=== PATIENT | male | born 1945 | race Caucasian/White ===

== ENCOUNTER 2018-06-08 21:41 | Emergency (ER) | payer OTHER ==
[2018-06-08 22:04] VITALS: BP 144/76; PULSE 74; TEMP 98.2; BMI 33.9
--- NOTE | 2018-06-08 22:05 | PDOC ---
Rapid Medical Evaluation Chief Complaint: Pain, Acute Time Seen by Provider: 06/08/18 21:59 Medical Evaluation: Allergies Allergy/AdvReac Type Severity Reaction Status Date / Time No Known Allergies Allergy Verified 12/27/15 23:37 06/08/18 22:00 72 year old male with RLQ pain 30 mins prior to arrival, intermittent in nature. denies flank pain, urinary symptoms, no nausea. pmhx; hypertension PE: patient alert ox3. abdomen soft nontender at this time. no CVAT. A: abdominal pain P: ua, labs, spiral CT patient to the ER for further management of care. 06/08/18 22:04 Discharge Disposition - Diagnosis Abdominal pain Qualifiers: Abdominal location: unspecified location Qualified Code(s): R10.9 - Unspecified abdominal pain - Referrals - Patient Instructions - Post Discharge Activity
[2018-06-08 23:48] LABS: URINE APPEARANCE CLEAR; URINE BILIRUBIN NEGATIVE (<2.0 mg/dL); URINE COLOR YELLOW; URINE GLUCOSE (UA) NEGATIVE (NEGATIVE); URINE KETONE NEGATIVE (NEGATIVE); URINE LEUK ESTERASE NEGATIVE (NEGATIVE); URINE NITRITE NEGATIVE (NEGATIVE); URINE PROTEIN 1+ (NEGATIVE); URINE UROBILINOGEN 4.0 E.U/dl mg/dL (0.2-1.0)
[2018-06-08 23:51] LABS: HEMATOCRIT 44.2 % (35.4-49); HEMOGLOBIN 15.2 GM/dL (11.7-16.9); LYMPH % 23.9 % (8-40); MCH 31.2 pg (25.7-33.7); MCHC 34.4 g/dl (32.0-35.9); MEAN CELL VOLUME 90.6 fl (80-96); MEAN PLT VOLUME 6.8 fl (7.5-11.1); MONO % 8.3 % (3.8-10.2); NEUT % 0.4 % (42.8-82.8); PLATELET COUNT 246 K/MM3 (134-434); RBC 4.88 M/mm3 (4.00-5.60); RDW 13.3 % (11.9-15.9); WHITE BLOOD COUNT 9.7 K/mm3 (4.0-10.0)
[2018-06-08 23:59] LABS: URINE MUCUS RARE
[2018-06-09 00:16] LABS: ALBUMIN 3.9 g/dl (3.4-5.0); ALK PHOS 87 U/L (45-117); ANION GAP 9 (8-16); BILIRUBIN,TOTAL 0.4 mg/dL (0.2-1.0); BLOOD UREA NITROGEN 24 mg/dL (7-18); CALCIUM 9.1 mg/dL (8.5-10.1); CHLORIDE 103 mmol/L (98-107); CO2 26 mmol/L (21-32); CREATININE 1.8 mg/dL (0.7-1.3); GLUCOSE,RANDOM 104 mg/dL (74-106); POTASSIUM 3.7 mmol/L (3.5-5.1); SGOT/AST 24 U/L (15-37); SGPT/ALT 26 U/L (12-78); SODIUM 138 mmol/L (136-145); TOT PROT 8.1 g/dl (6.4-8.2)
--- NOTE | 2018-06-09 00:16 | PDOC ---
History of Present Illness - General Chief Complaint: Pain Stated Complaint: PAIN, ACUTE Time Seen by Provider: 06/08/18 21:59 - History of Present Illness Initial Comments: 06/09/18 00:51 72-year-old male complaining of right lower quadrant pain set in onset 30 minutes prior to arrival. Patient reports that he took one dose of Lasix to increase urinary output. Patient has a history of kidney stone. Patient reports that pain is intermittent in nature denies urinary retention, hematuria, flank pain at this time. Denies fevers/chills. Patient has a past medical history of kidney stone, hypertension. Past History - Past Medical History Allergies/Adverse Reactions: Allergies Allergy/AdvReac Type Severity Reaction Status Date / Time No Known Allergies Allergy Verified 06/08/18 23:52 Home Medications: Ambulatory Orders Lisinopril 5 mg PO DAILY 12/26/15 Guar Gum [Benefiber] 1 each PO BID #0 packet 12/27/15 Tamsulosin HCl [Flomax] 0.4 mg PO DAILY #10 cap.er.24h 06/09/18 COPD: No GI Disorders: Yes (COLON POLYP, HEMORRHOIDSH) HTN: Yes Kidney Stones: Yes - Immunization History Immunization Up to Date: No - Suicide/Smoking/Psychosocial Hx Smoking Status: No Smoking History: Never smoked Have you smoked in the past 12 months: Yes Number of Cigarettes Smoked Daily: 10 Information on smoking cessation initiated: No 'Breaking Loose' booklet given: 12/27/15 Hx Alcohol Use: No Drug/Substance Use Hx: No Substance Use Type: None Review of Systems - Review of Systems Able to Perform ROS?: Yes Is the patient limited [place] proficient: No Constitutional: No: Symptoms Reported, See HPI, Chills, Diaphoresis, Fever, Loss of Appetite, Malaise, Night Sweats, Weakness, Weight Stable, Unintentional Wgt. Loss, Unexplained wgt Loss, Other ABD/GI: Yes: Abdominal cramping. No: Symptoms Reported, See HPI, Abdominal Distended, Abd. Pain w/ defecation, Blood Streaked Bowels, Constipated, Diarrhea , Difficulty Swallowing, Nausea, Poor Appetite, Poor Fluid Intake, Rectal Bleeding, Vomiting, Indigestion, Tarry Stools, Other : No: Symptoms Reported, See HPI, Burning, Dysuria, Discharge, Frequency, Flank Pain, Hematuria, Incontinence, Pain, Urgency, Testicular Mass, Testicular Swelling, Lesions, Testicular Pain, Other *Physical Exam - Vital Signs Last Vital Signs Temp Pulse Resp BP Pulse Ox 98.2 F 74 18 144/76 98 06/08/18 22:01 06/08/18 22:01 06/08/18 22:01 06/08/18 22:01 06/08/18 22:01 - Physical Exam General Appearance: Yes: Appropriately Dressed Respiratory/Chest: positive: Lungs Clear, Normal Breath Sounds Gastrointestinal/Abdominal: positive: Normal Bowel Sounds, Soft Musculoskeletal: positive: Normal Inspection Extremity: positive: Normal Capillary Refill, Normal Inspection, Normal Range of Motion Integumentary: positive: Normal Color, Dry, Warm Neurologic: positive: Fully Oriented, Alert, Normal Mood/Affect ED Treatment Course - LABORATORY CBC & Chemistry Diagram: 06/08/18 23:45 06/08/18 23:45 - ADDITIONAL ORDERS Additional order review: Laboratory Results 06/08/18 22:13 Urine Color Yellow Urine Appearance Clear Urine pH 5.0 Ur Specific [place] 1.021 Urine Protein 1+ H Urine Glucose (UA) Negative Urine Ketones Negative Urine Blood 3+ H Urine Nitrite Negative Urine Bilirubin Negative Urine Urobilinogen 4.0 e.u/dl Ur Leukocyte Esterase Negative Urine WBC (Auto) 9 Urine RBC (Auto) 115 Urine Mucus Rare 06/08/18 23:45 RBC 4.88 MCV 90.6 MCHC 34.4 RDW 13.3 MPV 6.8 L Neutrophils % 0.4 L Lymphocytes % 23.9 Monocytes % 8.3 Eosinophils % 67.4 H* D Basophils % 0.0 - RADIOLOGY Radiology Studies Ordered: Category Date Time Status SPIRAL- RENAL-STONE CT [CT] Stat CT Scan 06/08/18 22:03 Ordered Medical Decision Making - Medical Decision Making A: renal colic p: cbc cmp renal u/s CT patient refused. 06/09/18 00:16 patient currently in no pain. patient refuse CT due to claustrophobia. advised at length about the exam. atient refused. likely recently passed stone considering patient has no pain at this moment. will do a renal u/s r/o hydronephrosis. 06/09/18 00:48 FINDINGS: Right kidney is 11.8 cm in length and demonstrates minimal hydronephrosis. No stones identified. Left kidney is 9.9 cm in length and appears normal. The liver is fatty. IMPRESSION: Minimal right hydronephrosis could be due to a visualized ureteral stone. Fatty liver. *DC/Admit/Observation/Transfer Diagnosis at time of Disposition: Kidney stone on right side, Renal colic on right side Abdominal pain Qualifiers: Abdominal location: unspecified location Qualified Code(s): R10.9 - Unspecified abdominal pain - Discharge Dispostion Disposition: HOME Condition at time of disposition: Fair - Prescriptions Prescriptions: Tamsulosin HCl [Flomax] 0.4 mg PO DAILY #10 cap.er.24h - Referrals Referrals: Michelle Kam MD [Primary Care Provider] - Iggy Morales MD [Staff Physician] - Call tomorrow - Patient Instructions Printed Discharge Instructions: Kidney Stones -- Adult Additional Instructions: Additional Instructions: * Please call your personal physician to report your Emergency Department visit and to report your progress, if any. * If there is no improvement in symptoms in 2 days call your physician. * Return to the Emergency Department for any worsening symptoms. Drink plenty of fluids. Take Flomax starting tomorrow evening. You got your first dose here. Follow up with a urologist as soon as possible Return to the ER if symptoms worsen. . - Post Discharge Activity
[2018-06-09] MEDS ORDERED: TAMSULOSIN HCL 0.4 MG CAP.ER.24H (FP) PO ONE (00:49)
[2018-06-09] MEDS ORDERED: TAMSULOSIN HCL 0.4 MG CAP.ER.24H (FP) ONE (01:00)
--- NOTE | 2018-06-09 01:06 | PDOC ---
*Physical Exam - Vital Signs Last Vital Signs Temp Pulse Resp BP Pulse Ox 98.2 F 74 18 144/76 98 06/08/18 22:01 06/08/18 22:01 06/08/18 22:01 06/08/18 22:01 06/08/18 22:01 ED Treatment Course - LABORATORY CBC & Chemistry Diagram: 06/08/18 23:45 06/08/18 23:45 - ADDITIONAL ORDERS Additional order review: Laboratory Results 06/08/18 06/08/18 23:45 22:13 Sodium 138 Potassium 3.7 Chloride 103 Carbon Dioxide 26 Anion Gap 9 BUN 24 H Creatinine 1.8 H Creat Clearance w eGFR 37.49 Random Glucose 104 Calcium 9.1 Total Bilirubin 0.4 AST 24 ALT 26 Alkaline Phosphatase 87 Total Protein 8.1 Albumin 3.9 Urine Color Yellow Urine Appearance Clear Urine pH 5.0 Ur Specific [place] 1.021 Urine Protein 1+ H Urine Glucose (UA) Negative Urine Ketones Negative Urine Blood 3+ H Urine Nitrite Negative Urine Bilirubin Negative Urine Urobilinogen 4.0 e.u/dl Ur Leukocyte Esterase Negative Urine WBC (Auto) 9 Urine RBC (Auto) 115 Urine Mucus Rare 06/08/18 23:45 RBC 4.88 MCV 90.6 MCHC 34.4 RDW 13.3 MPV 6.8 L Neutrophils % 0.4 L Lymphocytes % 23.9 Monocytes % 8.3 Eosinophils % 67.4 H* D Basophils % 0.0 Medical Decision Making - Medical Decision Making 06/09/18 01:06 agree with care from [facility] [place] *DC/Admit/Observation/Transfer Diagnosis at time of Disposition: Kidney stone on right side Abdominal pain Qualifiers: Abdominal location: unspecified location Qualified Code(s): R10.9 - Unspecified abdominal pain - Discharge Dispostion Disposition: HOME - Prescriptions Prescriptions: Tamsulosin HCl [Flomax] 0.4 mg PO DAILY #10 cap.er.24h - Referrals Referrals: Iggy Morales MD [Staff Physician] - Call tomorrow Michelle Kam MD [Primary Care Provider] - - Patient Instructions Printed Discharge Instructions: Kidney Stones -- Adult Additional Instructions: Additional Instructions: * Please call your personal physician to report your Emergency Department visit and to report your progress, if any. * If there is no improvement in symptoms in 2 days call your physician. * Return to the Emergency Department for any worsening symptoms. Drink plenty of fluids. Take Flomax starting tomorrow evening. You got your first dose here. Follow up with a urologist as soon as possible Return to the ER if symptoms worsen. . - Post Discharge Activity
[2018-06-09 01:12] LABS: PLATELET ESTIMATE ADEQUATE
== END 2018-06-09 01:10 | disposition home or self-care (01) ==
LOC: JER 21:41
DX: R10.9 Unspecified abdominal pain (principal); N20.0 Calculus of kidney; Z87.891 Personal history of nicotine dependence; I10 Essential (primary) hypertension
CPT/HCPCS: 36415; 76775-TC; 80053; 81003; 81015; 85025; 87086; 99282-25

== ENCOUNTER 2018-06-19 11:30 | Day surgery (SDC) | payer OTHER ==
[2018-06-19 11:40] VITALS: BMI 31.4
--- NOTE | 2018-06-19 12:44 | PDOC ---
Attending Attestation - Resident Resident Name: UcheadinaGeoffreyMichael - ED Attending Attestation I have performed the following: I have examined & evaluated the patient, The case was reviewed & discussed with the resident, I agree w/resident's findings & plan, Exceptions are as noted - HPI HPI: 06/19/18 13:48 The patient is a 72-year-old male presents to the emergency department for admission. The patient states he was sent in by Dr. Burnham secondary to elevated creatinine levels. The patient is scheduled for a Renal Stent placement by Dr. Burnham tomorrow. The patient reports having a similar procedure in the past. The patient reports his only complaint is hes been belching alot. The patient states he has no other complaint. No fever, chills, abdominal pain or dysuria. PMHx: HTN and Kidney stones. PCP: Dr. Kam Urology: Dr. Burnham - Physicial Exam PE: 06/19/18 14:40 GENERAL: Awake, alert, and fully oriented, in no acute distress HEAD: No signs of trauma EYES: PERRLA, EOMI, sclera anicteric, conjunctiva clear ENT: Auricles normal inspection, hearing grossly normal, nares patent, oropharynx clear without exudates. Moist mucosa NECK: Normal ROM, supple, no lymphadenopathy, JVD, or masses LUNGS: Breath sounds equal, clear to auscultation bilaterally. No wheezes, and no crackles HEART: Regular rate and rhythm, normal S1 and S2, no murmurs, rubs or gallops ABDOMEN: Soft, nontender, normoactive bowel sounds. No guarding, no rebound. No masses EXTREMITIES: Normal range of motion, no edema. No clubbing or cyanosis. No cords, erythema, or tenderness NEUROLOGICAL: Cranial nerves II through XII grossly intact. Normal speech, normal gait SKIN: Warm, Dry, normal turgor, no rashes or lesions noted. - Medical Decision Making 06/19/18 13:[address] Kam at 1:19 pm, spoke with the answering service, waiting for a call back from Dr. Sellers. 06/19/18 13:50 Second call placed to Dr. Kam's office at 1:50 pm, spoke with the answering service, waiting for a call back from Dr. Sellers. 06/19/18 14:[address] Burnham at 2:09 pm, spoke with the answering service, waiting for a call back. 06/19/18 14:[address] Burnham at 2:19 pm, The doctor reports the patient was sent in for admission for elevated creatinine level prior to renal stent placement. 06/19/18 14:37 Dr. Sellers overhead paged at 2:37 pm. 06/19/18 14:[address] Sellers at 2:39 pm, spoke with the answering service, waiting for a call back.
--- NOTE | 2018-06-19 13:01 | PDOC ---
History of Present Illness - General Chief Complaint: Pain, Acute Stated Complaint: SENT BY PCP Time Seen by Provider: 06/19/18 12:32 - History of Present Illness Initial Comments: 06/19/18 12:53 72 yo M w/ a hx of kidney stones was told by Dr. Kam and Dr. Soto to come to the ER so he can be admitted for surgery tomorrow. He was diagnosed with a kidney stone last Wednesday. He says he has had this problem in the past and he has experienced this procedure multiple times. He is not currently experiencing any pain and is lying comfortably in the bed. Denies recent fevers, chills, or infections. Denies chest pain, SOB, or difficulty breathing. Meds: Tamsulosin, lisinopril,levofloxacin. Past History - Past Medical History Allergies/Adverse Reactions: Allergies Allergy/AdvReac Type Severity Reaction Status Date / Time No Known Allergies Allergy Verified 06/19/18 11:33 Home Medications: Ambulatory Orders RX: Lisinopril 5 mg PO DAILY 12/26/15 Guar Gum [Benefiber] 1 each PO BID #0 packet 12/27/15 Tamsulosin HCl [Flomax] 0.4 mg PO DAILY #10 cap.er.24h 06/09/18 COPD: No GI Disorders: Yes (COLON POLYP, HEMORRHOIDSH) HTN: Yes Kidney Stones: Yes - Immunization History Immunization Up to Date: No - Suicide/Smoking/Psychosocial Hx Smoking Status: No Smoking History: Current some day smoker Have you smoked in the past 12 months: Yes Number of Cigarettes Smoked Daily: 4 Information on smoking cessation initiated: Yes 'Breaking Loose' booklet given: 12/27/15 Hx Alcohol Use: No Drug/Substance Use Hx: No Substance Use Type: None Review of Systems - Review of Systems Comments:: 06/19/18 13:02 CONSTITUTIONAL: Absent: fever, chills, diaphoresis, generalized weakness, malaise, loss of appetite HEENT: Absent: rhinorrhea, nasal congestion, throat pain, throat swelling, difficulty swallowing, mouth swelling, ear pain, eye pain, visual Changes CARDIOVASCULAR: Absent: chest pain, syncope, palpitations, irregular heart rate, lightheadedness , peripheral edema RESPIRATORY: Absent: cough, shortness of breath, dyspnea with exertion, orthopnea, wheezing, stridor, hemoptysis GASTROINTESTINAL: Absent: abdominal pain, abdominal distension, nausea, vomiting, diarrhea, constipation, melena, hematochezia GENITOURINARY: positive: flank pain Absent: dysuria, frequency, urgency, hesitancy, hematuria, genital pain MUSCULOSKELETAL: Absent: myalgia, arthralgia, joint swelling SKIN: Absent: rash, itching, pallor HEMATOLOGIC/IMMUNOLOGIC: Absent: easy bleeding, easy bruising, lymphadenopathy, frequent infections ENDOCRINE: Absent: unexplained weight gain, unexplained weight loss, heat intolerance, cold intolerance NEUROLOGIC: Absent: headache, focal weakness or paresthesias, dizziness, unsteady gait, seizure, mental status changes, bladder or bowel incontinence PSYCHIATRIC: Absent: anxiety, depression, suicidal or homicidal ideation, hallucinations. *Physical Exam - Vital Signs Last Vital Signs Temp Pulse Resp BP Pulse Ox 97.5 F L 79 18 145/88 99 06/19/18 11:33 06/19/18 11:33 06/19/18 11:33 06/19/18 11:33 06/19/18 11:33 - Physical Exam Comments: 06/19/18 13:06 GENERAL: Well developed, well nourished. Awake and alert. No acute distress. HEENT: Normocephalic, atraumatic. PERRLA, EOMI. No conjunctival pallor. Sclera are non- icteric. Moist mucous membranes. Oropharynx is clear. NECK: Supple. Full ROM. No JVD. No thyromegaly. No lymphadenopathy. CARDIOVASCULAR: Regular rate and rhythm. No murmurs, rubs, or gallops. Distal pulses are 2+ and symmetric. PULMONARY: No evidence of respiratory distress. Lungs clear to auscultation bilaterally. No wheezing, rales or rhonchi. ABDOMINAL: Soft. Non-tender. Non-distended. No rebound or guarding. No organomegaly. Normoactive bowel sounds. MUSCULOSKELETAL Normal range of motion at all joints. No bony deformities or tenderness. No CVA tenderness. EXTREMITIES: No cyanosis. No clubbing. No edema. No calf tenderness. SKIN: Warm and dry. Normal capillary refill. No rashes. No jaundice. NEUROLOGICAL: Alert, awake, appropriate. Cranial nerves 2-12 grossly intact. Normal speech. Gait is normal without ataxia. PSYCHIATRIC: Cooperative. Good eye contact. Appropriate mood and affect. 06/19/18 13:08 ED Treatment Course - LABORATORY CBC & Chemistry Diagram: 06/19/18 13:30 06/19/18 13:16 Medical Decision Making - Medical Decision Making 06/19/18 13:10 72 yo M w/ a hx of kidney stones was told by Dr. Kam and Dr. Soto to come to the ER so he can be admitted for surgery tomorrow. He is in no acute distress. Plan: Pre-op labs, ekg, admit. 06/19/18 13:13 *DC/Admit/Observation/Transfer Diagnosis at time of Disposition: Kidney stone on right side, Hydronephrosis with obstructing calculus - Discharge Dispostion Condition at time of disposition: Guarded Decision to Admit order: Yes - Referrals Referrals: Michelle Kam MD [Primary Care Provider] - - Patient Instructions - Post Discharge Activity
[2018-06-19 13:37] LABS: URINE APPEARANCE CLEAR; URINE BILIRUBIN NEGATIVE (<2.0 mg/dL); URINE COLOR LTYELLOW; URINE GLUCOSE (UA) NEGATIVE (NEGATIVE); URINE KETONE NEGATIVE (NEGATIVE); URINE LEUK ESTERASE NEGATIVE (NEGATIVE); URINE NITRITE NEGATIVE (NEGATIVE); URINE PROTEIN NEGATIVE (NEGATIVE); URINE UROBILINOGEN NEGATIVE mg/dL (0.2-1.0)
[2018-06-19 13:39] LABS: HEMATOCRIT 37.4 % (35.4-49); MCH 31.3 pg (25.7-33.7); MCHC 34.8 g/dl (32.0-35.9); MEAN CELL VOLUME 89.9 fl (80-96); MEAN PLT VOLUME 6.5 fl (7.5-11.1); PLATELET COUNT 243 K/MM3 (134-434); RBC 4.16 M/mm3 (4.00-5.60); RDW 12.9 % (11.9-15.9); WHITE BLOOD COUNT 6.1 K/mm3 (4.0-10.0)
[2018-06-19 13:40] LABS: EPI CELLS RARE /HPF (FEW)
[2018-06-19 13:51] LABS: INR 1.1 (0.83-1.09); PROTHROMBIN TIME (PATIENT) 12.4 SEC (9.7-13.0)
[2018-06-19 13:53] LABS: ACTIVATED PTT 31.2 SECONDS (25.2-36.5)
[2018-06-19 14:00] LABS: ALBUMIN 3.8 g/dl (3.4-5.0); ALK PHOS 88 U/L (45-117); ANION GAP 9 (8-16); BILIRUBIN,TOTAL 0.2 mg/dL (0.2-1.0); BLOOD UREA NITROGEN 26 mg/dL (7-18); CALCIUM 9.1 mg/dL (8.5-10.1); CHLORIDE 104 mmol/L (98-107); CO2 27 mmol/L (21-32); CREATININE 2.1 mg/dL (0.7-1.3); GLUCOSE,RANDOM 96 mg/dL (74-106); POTASSIUM 3.8 mmol/L (3.5-5.1); SGOT/AST 23 U/L (15-37); SGPT/ALT 28 U/L (12-78); SODIUM 140 mmol/L (136-145); TOT PROT 8.1 g/dl (6.4-8.2)
--- NOTE | 2018-06-19 19:12 | EKG ---
Test Reason : Blood Pressure : / mmHG Vent. Rate : 056 BPM Atrial Rate : 056 BPM P-R Int : 158 ms QRS Dur : 110 ms QT Int : 444 ms P-R-T Axes : 013 -43 -03 degrees QTc Int : 428 ms SINUS BRADYCARDIA LEFT AXIS DEVIATION MINIMAL VOLTAGE CRITERIA FOR LVH, MAY BE NORMAL VARIANT ABNORMAL ECG WHEN COMPARED WITH ECG OF 27-FEB-2013 16:27, NO SIGNIFICANT CHANGE WAS FOUND Confirmed by MD KRISTINA, JUSTYN ([id number]) on 06/19/2018 7:12:27 PM Referred By: Confirmed By:JUSTYN ACEVEDO MD
--- NOTE | 2018-06-20 12:11 | HP ---
Admitting History and Physical - Primary Care Physician PCP: Michelle Kam - Admission Chief Complaint: Right hydronephrosis. Renal Calculi History of Present Illness: The patient is a 72-year-old male presents to the emergency department for admission. The patient states he was sent in by Dr. Burnham secondary to elevated creatinine levels. The patient is scheduled for a Renal Stent placement by Dr. Burnham tomorrow. The patient reports having a similar procedure in the past. The patient reports his only complaint is hes been belching alot. The patient states he has no other complaint. No fever, chills, abdominal pain or dysuria. History Source: Patient, Medical Record Limitations to Obtaining History: No Limitations - Smoking History Smoking history: Current some day smoker Have you smoked in the past 12 months: Yes Aproximately how many cigarettes per day: 4 - Alcohol/Substance Use Hx Alcohol Use: No Home Medications - Allergies Allergies/Adverse Reactions: Allergies Allergy/AdvReac Type Severity Reaction Status Date / Time No Known Allergies Allergy Verified 06/19/18 11:33 - Home Medications Home Medications: Ambulatory Orders Lisinopril 5 mg PO DAILY 12/26/15 Guar Gum [Benefiber] 1 each PO BID #0 packet 12/27/15 Tamsulosin HCl [Flomax] 0.4 mg PO DAILY #10 cap.er.24h 06/09/18 Review of Systems - Review of Systems Constitutional: reports: No Symptoms Eyes: reports: No Symptoms HENT: reports: No Symptoms Neck: reports: No Symptoms Cardiovascular: reports: No Symptoms Respiratory: reports: No Symptoms Gastrointestinal: reports: No Symptoms Genitourinary: reports: No Symptoms Breasts: reports: No Symptoms Reported Musculoskeletal: reports: No Symptoms Integumentary: reports: No Symptoms Neurological: reports: No Symptoms Endocrine: reports: No Symptoms Hematology/Lymphatic: reports: No Symptoms Psychiatric: reports: No Symptoms Physical Examination Vital Signs: Vital Signs Temperature 98.6 F 06/20/18 09:55 Pulse Rate 64 06/20/18 09:55 Respiratory Rate 20 06/20/18 09:55 Blood Pressure 169/84 06/20/18 09:55 O2 Sat by Pulse Oximetry (%) 99 06/19/18 11:33 Constitutional: Yes: Well Nourished, No Distress, Calm Cardiovascular: Yes: Regular Rate and Rhythm Respiratory: Yes: Regular Gastrointestinal: Yes: Normal Bowel Sounds, Soft Musculoskeletal: Yes: WNL Extremities: Yes: WNL Edema: No Peripheral Pulses WNL: Yes Neurological: Yes: Alert, Oriented Psychiatric: Yes: Alert, Oriented Labs: CBC, BMP 06/19/18 13:30 06/19/18 13:16
[2018-06-20] MEDS ORDERED: TAMSULOSIN HCL 0.4 MG CAP.ER.24H (FP) PO SCH (12:15)
[2018-06-20] MEDS ORDERED: SODIUM CHLORIDE 1,000 ML IV SCH (12:15)
[2018-06-20] MEDS ORDERED: LISINOPRIL 5 MG TABLET (FP) ONE (12:41)
[2018-06-20] MEDS ORDERED: TAMSULOSIN HCL 0.4 MG CAP.ER.24H (FP) ONE (12:42)
[2018-06-20] MEDS: LISINOPRIL 5 MG TABLET (FP) PO SCH (12:53)
[2018-06-20] MEDS ORDERED: ACETAMINOPHEN 325 MG TABLET (FP) PO PRN (16:40)
[2018-06-20] MEDS ORDERED: ONDANSETRON 4 MG/2 ML VIAL IVPUSH PRN (16:40)
--- NOTE | 2018-06-20 16:57 | CONSULT ---
Consult - text type - Consultation Consultation Note: CC: acute renal insufficiency with right colic with obstructing ureteral stone hpi: Patient with 2 week history of intermittent colic with nausea. Patient denies fever or chills and has not yet passed a stone. Patient with continues flank pain. PE afeb/vss abd- right CVAT renal sono reviewed creatinine elevated to 2.1 imp right colic right ureteral stone acute renal insufficiency plan discussed x 25 minutes patient emergently taken to the OR to salvage renal function
[2018-06-20] MEDS ORDERED: PROPOFOL 20 ML ONE (17:01)
[2018-06-20] MEDS ORDERED: SUCCINYLCHOLINE CHLORIDE 200 MG/10 ML VIAL ONE (17:02)
[2018-06-20] MEDS ORDERED: DEXAMETHASONE SOD PHOSPHATE 4 MG/1 ML VIAL ONE (17:26)
[2018-06-20] MEDS ORDERED: ePHEDrine SULFATE 50 MG/1 ML AMPULE ONE (17:35)
--- NOTE | 2018-06-20 17:41 | OP ---
Operative Note - Note: Operative Date: 06/20/18 Pre-Operative Diagnosis: right uretertal stone Operation: cystoscopy/right retrograde pyelogram/right ureteroscopic laser lithotripsy/right ureteral stent placement Findings: 7+mm right ureteral impacted stone Post-Operative Diagnosis: Same as Pre-op Surgeon: Lenin Burnham Anesthesia: General Drains & Tubes with Location: 04/26 Operative Report Dictated: Yes
--- NOTE | 2018-06-20 21:00 | OP ---
DATE OF OPERATION: 06/20/2018 PREOPERATIVE DIAGNOSIS: Right ureteral stone. POSTOPERATIVE DIAGNOSIS: Right ureteral stone. PROCEDURE: Cystoscopy, right retrograde pyelogram, right uroscopic stone manipulation, right ureteral stent placement. ATTENDING: Barrett Burnham M.D. ANESTHESIA: General. DESCRIPTION OF PROCEDURE: Patient brought in the operating room, placed in supine position on the operating room table. The patient was given antibiotics and anesthesia. At this point, the patient was placed in dorsal lithotomy position. Cystoscopy was performed. No evidence of stone or neoplasm were noted within the bladder. The right ureteral orifice showed no evidence of trauma consistent with recent stone passage. Retrograde pyelogram showed a filling defect on the distal ureter. Filling defect with increased pressure for the retrograde pyelogram was dislodged and migrated proximally. A wire was then pressed into the ureter under fluoroscopic guidance. Ureteroscopy was performed, and the stone was seen within the upper ureter. The stone was noted, however passed into the lower pole calyx. There was very poor visualization due to the previous obstruction that had just been corrected. Because of the fear of further damage to the kidneys, it was decided to leave the patient with the stent and to have the shockwave lithotripsy at a later date. Patient tolerated procedure very well. No complication was noted. The patient will be followed as an outpatient. BARRETT ARCHER M.D. [id number]
[2018-06-20] MEDS: ACETAMINOPHEN WITH CODEINE 300MG/30MG TABLET PO PRN (21:46)
[2018-06-20] MEDS ORDERED: HEPARIN NA (PORCINE) 5,000 UNITS/ML 1ML VIAL SQ SCH (22:00)
[2018-06-20 22:15] LABS: BASO % 0.3 % (0-2.0); EOS % 0.1 % (0-4.5); HEMATOCRIT 39.1 % (35.4-49); HEMOGLOBIN 13.7 GM/dL (11.7-16.9); LYMPH % 5.5 % (8-40); MCH 31.3 pg (25.7-33.7); MCHC 34.9 g/dl (32.0-35.9); MEAN CELL VOLUME 89.5 fl (80-96); MEAN PLT VOLUME 6.7 fl (7.5-11.1); MONO % 1.4 % (3.8-10.2); NEUT % 92.7 % (42.8-82.8); PLATELET COUNT 248 K/MM3 (134-434); RBC 4.37 M/mm3 (4.00-5.60); WHITE BLOOD COUNT 10.1 K/mm3 (4.0-10.0)
[2018-06-20 22:51] LABS: ALBUMIN 3.4 g/dl (3.4-5.0); ALK PHOS 87 U/L (45-117); ANION GAP 9 (8-16); BILIRUBIN,TOTAL 0.4 mg/dL (0.2-1.0); BLOOD UREA NITROGEN 24 mg/dL (7-18); CALCIUM 8.4 mg/dL (8.5-10.1); CHLORIDE 105 mmol/L (98-107); CO2 25 mmol/L (21-32); GLUCOSE,RANDOM 165 mg/dL (74-106); POTASSIUM 4.1 mmol/L (3.5-5.1); SGOT/AST 18 U/L (15-37); SGPT/ALT 24 U/L (12-78); SODIUM 139 mmol/L (136-145); TOT PROT 7.2 g/dl (6.4-8.2)
[2018-06-20 23:22] LABS: PLATELET ESTIMATE ADEQUATE
[2018-06-21] MEDS ORDERED: ACETAMINOPHEN WITH CODEINE 300MG/30MG TABLET PO ONE (00:45)
[2018-06-21] MEDS: ACETAMINOPHEN WITH CODEINE 300MG/30MG TABLET PO PRN (05:48)
[2018-06-21 06:44] VITALS: TEMP 97.7
[2018-06-21 08:15] LABS: BASO % 0.4 % (0-2.0); HEMOGLOBIN 12.8 GM/dL (11.7-16.9); LYMPH % 6.9 % (8-40); MCH 30.8 pg (25.7-33.7); MCHC 34.5 g/dl (32.0-35.9); MEAN CELL VOLUME 89.4 fl (80-96); MEAN PLT VOLUME 6.5 fl (7.5-11.1); MONO % 4.6 % (3.8-10.2); NEUT % 88.1 % (42.8-82.8); PLATELET COUNT 233 K/MM3 (134-434); RBC 4.14 M/mm3 (4.00-5.60); RDW 12.8 % (11.9-15.9)
--- NOTE | 2018-06-21 08:21 | DS ---
Physical Examination Vital Signs: Vital Signs Temperature 97.7 F 06/21/18 04:00 Pulse Rate 58 L 06/21/18 04:00 Respiratory Rate 20 06/21/18 04:00 Blood Pressure 143/76 06/21/18 04:00 O2 Sat by Pulse Oximetry (%) 98 06/20/18 20:28 Findings/Remarks: STILL WITH MILD DISTRESS Constitutional: Yes: Mild Distress Eyes: Yes: WNL HENT: Yes: WNL Neck: Yes: WNL Cardiovascular: Yes: WNL Respiratory: Yes: WNL Gastrointestinal: Yes: WNL Renal/: Yes: Hematuria Musculoskeletal: Yes: WNL Extremities: Yes: WNL Edema: No Peripheral Pulses WNL: Yes Integumentary: Yes: WNL Wound/Incision: Yes: Clean/Dry Neurological: Yes: WNL ...Motor Strength: WNL Psychiatric: Yes: WNL Discharge Summary Reason For Visit: CALCULUS OF RIGHT KIDNEY Current Active Problems Hydronephrosis with obstructing calculus (Acute) Kidney stone on right side (Acute) Procedures: Principal: CYSTOSCOPY/RENAL COLIC Hospital Course: ADMITTED SEVERE RENAL COLIC/URINARY RETENTION, CYSTOSCOPY WITH RENAL URETER STENT INSERTED, F/U RENAL FUNCTIONS Condition: Fair - Instructions Diet, Activity, Other Instructions: CHECK RENAL FUNCTION, SEE DR KAM IN 2 DAYS Referrals: Michelle Kam MD [Primary Care Provider] - Disposition: HOME - Home Medications Comprehensive Discharge Medication List: Ambulatory Orders Lisinopril 5 mg PO DAILY 12/26/15 Guar Gum [Benefiber] 1 each PO BID #0 packet 12/27/15 Tamsulosin HCl [Flomax] 0.4 mg PO DAILY #10 cap.er.24h 06/09/18 Acetaminophen W/ Codeine #3 [Tylenol # 3 -] 1 tab PO Q4H PRN tablet MDD 6 06/21
[2018-06-21] MEDS ORDERED: TAMSULOSIN HCL 0.4 MG CAP.ER.24H (FP) PO SCH (08:30)
[2018-06-21 08:51] LABS: CHLORIDE 104 mmol/L (98-107); POTASSIUM 4.3 mmol/L (3.5-5.1); SODIUM 139 mmol/L (136-145)
[2018-06-21 09:00] LABS: ALBUMIN 3.1 g/dl (3.4-5.0); ALK PHOS 78 U/L (45-117); ANION GAP 12 (8-16); BILIRUBIN,TOTAL 0.5 mg/dL (0.2-1.0); BLOOD UREA NITROGEN 25 mg/dL (7-18); CALCIUM 8.3 mg/dL (8.5-10.1); CO2 23 mmol/L (21-32); CREATININE 1.9 mg/dL (0.7-1.3); GLUCOSE,RANDOM 126 mg/dL (74-106); SGOT/AST 13 U/L (15-37); SGPT/ALT 21 U/L (12-78); TOT PROT 6.7 g/dl (6.4-8.2)
[2018-06-21] MEDS: LISINOPRIL 5 MG TABLET (FP) PO SCH (09:41)
--- NOTE | 2018-06-21 10:30 | PN ---
Progress Note (short form) - Note Progress Note: Anesthesia postop note 72 y/o M s/p GA for cystoscopy, laser lithotripsy, stent placement POD#1, vss, aaox3, no complaints. No anesthesia complications.
[2018-06-21 11:49] VITALS: BP 146/82; PULSE 78
== END 2018-06-21 10:48 | disposition home or self-care (01) ==
LOC: JER 11:30 → UNDOADMIN 15:14 → JASUSAT 15:14 → JERBED 15:14 → J8W 06-20 20:15 → JASUSAT 06-21 10:48
PROVIDERS: ATTEND Urology
PROC: 0T768DZ Dilation of Right Ureter with Intraluminal Device, Via Natural or Artificial Opening Endoscopic (ICD-10-PCS; principal; 2018-06-19)
DX: N13.2 Hydronephrosis with renal and ureteral calculous obstruction (principal)
CPT/HCPCS: 36415; 76000-TC-FY; 80053; 81003; 81015; 85025; 85027; 85610; 85730; 86850; 86900; 86901; 93005; 93010; 94760; 99284-25; J7030

== ENCOUNTER 2018-07-11 06:45 | Day surgery (SDC) | payer OTHER ==
[2018-07-08 14:42] VITALS: BMI 31.4
[2018-07-11] MEDS ORDERED: MIDAZOLAM HCL 2 MG/2 ML SINGLE DOSE VIAL ONE (08:54)
[2018-07-11] MEDS ORDERED: KETOROLAC TROMETHAMINE 30 MG/1 ML VIAL ONE (09:01)
[2018-07-11] MEDS ORDERED: DEXAMETHASONE SOD PHOSPHATE 4 MG/1 ML VIAL ONE (09:01)
--- NOTE | 2018-07-11 09:31 | OP ---
Operative Note - Note: Operative Date: 07/11/18 Pre-Operative Diagnosis: Right renal stone Operation: Right ESWL Findings: 7 mm mid pole kidney stone Post-Operative Diagnosis: Same as Pre-op Surgeon: Lenin Burnham Anesthesia: Fractional Estimated Blood Loss (mls): 0
[2018-07-11] MEDS ORDERED: PROMETHAZINE HCL 25 MG/1 ML VIAL IVPUSH PRN (09:44)
[2018-07-11] MEDS ORDERED: oxyCODONE HCL 5 MG TABLET PO PRN (09:44)
[2018-07-11] MEDS ORDERED: ONDANSETRON 4 MG/2 ML VIAL IVPUSH PRN (09:44)
[2018-07-11] MEDS ORDERED: LACTATED RINGERS SOLUTION 1,000 ML IV SCH (09:45)
[2018-07-11 09:52] VITALS: TEMP 97.7
[2018-07-11 10:55] VITALS: BP 143/84; PULSE 68
--- NOTE | 2018-07-11 21:06 | OP ---
DATE OF OPERATION: 07/11/2018 PREOPERATIVE DIAGNOSIS: Right renal stone. POSTOPERATIVE DIAGNOSIS: Right renal stone. PROCEDURE: Right extracorporeal shock wave lithotripsy. ATTENDING: Barrett Archer MD ANESTHESIA: General. DESCRIPTION OF OPERATION: The patient was brought in the operating room and placed in a supine position on the operating room table. Ultrasonography and fluoroscopy were performed. A 7-mm right mid-ureteral stone was identified. The patient has a history of a right ureteral stent. Once the stone was identified, the anesthesia was administered to the patient. Preoperative antibiotics were also given. Then, 3000 impulses at 18 joules of power were administered to the stone with excellent fragmentation noted under real-time ultrasonography and fluoroscopy. No complications were noted. The patient tolerated the procedure very well. BARRETT RACHER M.D. [id number]
== END 2018-07-11 11:00 | disposition home or self-care (01) ==
LOC: JASU-SURG 06:45
PROVIDERS: ATTEND Urology
PROC: 0TF3XZZ Fragmentation in Right Kidney Pelvis, External Approach (ICD-10-PCS; principal; 2018-07-11 08:45)
DX: N20.0 Calculus of kidney (principal)

== ENCOUNTER 2022-02-27 10:07 | Emergency (ER) | payer OTHER ==
[2022-02-27 10:11] VITALS: BP 156/75; PULSE 74; TEMP 97.5; BMI 36.9
[2022-02-27] MEDS ORDERED: SODIUM CHLORIDE 0.9% 500 ML INFUS.BAG IV ONE (10:45)
[2022-02-27] MEDS ORDERED: KETOROLAC TROMETHAMINE 30 MG/1 ML VIAL IVPUSH ONE (10:46)
[2022-02-27] MEDS ORDERED: ACETAMINOPHEN 325 MG TABLET (FP) PO ONE (10:46)
[2022-02-27] MEDS ORDERED: KETOROLAC TROMETHAMINE 30 MG/1 ML VIAL ONE (10:49)
[2022-02-27] MEDS ORDERED: ACETAMINOPHEN 325 MG TABLET (FP) ONE (10:49)
[2022-02-27 11:43] LABS: BASO % 0.6 % (0-2.0); EOS % 1.3 % (0-4.5); HEMATOCRIT 38.8 % (35.4-49); HEMOGLOBIN 13.4 GM/dL (11.7-16.9); LYMPH % 16.6 % (8-40); MCHC 34.5 g/dl (32.0-35.9); MEAN CELL VOLUME 89.6 fl (80-96); MEAN PLT VOLUME 6.7 fl (7.5-11.1); NEUT % 75.5 % (42.8-82.8); PLATELET COUNT 234 10^3/uL (134-434); RBC 4.33 M/mm3 (4.00-5.60); RDW 13.7 % (11.9-15.9); WHITE BLOOD COUNT 7.4 K/mm3 (4.0-10.0)
[2022-02-27 12:04] LABS: CALCIUM 8.6 mg/dL (8.5-10.1)
[2022-02-27 12:05] LABS: ALBUMIN 3.5 g/dl (3.4-5.0); BLOOD UREA NITROGEN 22.3 mg/dL (7-18)
[2022-02-27 12:08] LABS: CREATININE 1.4 mg/dL (0.55-1.3)
[2022-02-27 12:10] LABS: BILIRUBIN,TOTAL 0.4 mg/dL (0.2-1); TOT PROT 7.4 g/dl (6.4-8.2)
[2022-02-27 13:24] LABS: URINE APPEARANCE CLEAR; URINE BILIRUBIN NEGATIVE (NEGATIVE); URINE COLOR YELLOW; URINE GLUCOSE (UA) 3+ (NEGATIVE); URINE KETONE NEGATIVE (NEGATIVE); URINE LEUK ESTERASE NEGATIVE (NEGATIVE); URINE NITRITE NEGATIVE (NEGATIVE); URINE PROTEIN TRACE (NEGATIVE)
== END 2022-02-27 14:10 | disposition home or self-care (01) ==
LOC: JERFT 10:07
PROC: 3E033GC Introduction of Other Therapeutic Substance into Peripheral Vein, Percutaneous Approach (ICD-10-PCS; principal; 2022-02-27)
DX: R05.9 Cough, unspecified (principal)
CPT/HCPCS: 36415; 71046-TC-FY; 80053; 81003; 85025; 99284-25

== ENCOUNTER 2022-03-07 08:33 | Emergency (ER) | payer OTHER ==
[2022-03-07 08:40] VITALS: TEMP 97.8; BMI 36.2
[2022-03-07] MEDS ORDERED: LACTATED RINGERS SOLUTION 1000 ML INFUS.BAG IV ONE (09:38)
[2022-03-07 10:04] LABS: BASO % 0.6 % (0-2.0); EOS % 0.5 % (0-4.5); HEMATOCRIT 36.4 % (35.4-49); HEMOGLOBIN 12.8 GM/dL (11.7-16.9); LYMPH % 10.1 % (8-40); MCHC 35.1 g/dl (32.0-35.9); MEAN CELL VOLUME 88.4 fl (80-96); MEAN PLT VOLUME 6.2 fl (7.5-11.1); MONO % 12.5 % (3.8-10.2); NEUT % 76.3 % (42.8-82.8); PLATELET COUNT 236 10^3/uL (134-434); RBC 4.12 M/mm3 (4.00-5.60); RDW 13.4 % (11.9-15.9); WHITE BLOOD COUNT 4.9 K/mm3 (4.0-10.0)
[2022-03-07 10:28] LABS: ALBUMIN 3.4 g/dl (3.4-5.0); BLOOD UREA NITROGEN 17.7 mg/dL (7-18)
[2022-03-07 10:30] LABS: VENOUS BASE EXCESS 0.5 mmol/L (-2-2); VENOUS O2 SATURATION 83.7 % (70-80); VENOUS PCO2 43.3 mmHg (38-52); VENOUS PH 7.393 (7.310-7.410)
[2022-03-07 10:33] LABS: BILIRUBIN,TOTAL 0.6 mg/dL (0.2-1); TOT PROT 7.3 g/dl (6.4-8.2)
[2022-03-07 10:37] LABS: CREATININE 1.5 mg/dL (0.55-1.3)
[2022-03-07 11:04] VITALS: BP 127/75; PULSE 83
[2022-03-07 11:13] LABS: EPI CELLS 4 /uL (0-25.1); HYALINE CASTS 0 /uL (0-3.1); URINE APPEARANCE CLOUDY; URINE BACTERIA 0 /uL (0-1359); URINE BILIRUBIN NEGATIVE (NEGATIVE); URINE COLOR YELLOW; URINE GLUCOSE (UA) NEGATIVE (NEGATIVE); URINE KETONE NEGATIVE (NEGATIVE); URINE LEUK ESTERASE NEGATIVE (NEGATIVE); URINE NITRITE NEGATIVE (NEGATIVE); URINE PROTEIN 1+ (NEGATIVE); URINE RBC 11 /uL (0-23.9); URINE WBC 2 /uL (0-25.8)
[2022-03-09 00:06] LABS: SARS-CoV-2 NAA Detected (Not Detected)
== END 2022-03-07 14:27 | disposition left against medical advice (07) ==
LOC: JER 08:33
DX: R55 Syncope and collapse (principal)
CPT/HCPCS: 36415; 71045-TC-FY; 80053; 81003; 82010; 82803; 82962; 84484; 85025; 87086; 93005; 93010; 99285-25; C9803-CS; U0003; U0005

== ENCOUNTER 2022-03-07 15:13 | Observation (INO) | payer OTHER ==
[2022-03-07 15:20] VITALS: BMI 36.2
[2022-03-08 01:58] VITALS: TEMP 98.5
[2022-03-08 07:41] VITALS: BP 138/71; PULSE 87
[2022-03-08] MEDS ORDERED: LISINOPRIL 5 MG TABLET PO SCH (10:00)
[2022-03-08] MEDS ORDERED: TAMSULOSIN HCL 0.4 MG CAP PO SCH (10:00)
[2022-03-08] MEDS ORDERED: PATIENT'S OWN MEDICATION (NON-FORMULARY) (Mirabegron [Myrbetriq] 25 MG Tab.Er.24h) PO SCH (10:00)
[2022-03-08] MEDS ORDERED: ASPIRIN 81 MG CHEWABLE TABLETS PO SCH (10:00)
[2022-03-08] MEDS ORDERED: ENOXAPARIN NA (PORCINE) 40 MG/0.4 ML DISP.SYRIN SQ SCH (10:00)
[2022-03-08 11:44] LABS: BASO % 0.9 % (0-2.0); EOS % 0.2 % (0-4.5); HEMATOCRIT 34.2 % (35.4-49); HEMOGLOBIN 11.8 GM/dL (11.7-16.9); LYMPH % 21.1 % (8-40); MCH 31.1 pg (25.7-33.7); MCHC 34.6 g/dl (32.0-35.9); MEAN CELL VOLUME 89.8 fl (80-96); MEAN PLT VOLUME 6.5 fl (7.5-11.1); MONO % 9.6 % (3.8-10.2); NEUT % 68.2 % (42.8-82.8); PLATELET COUNT 204 10^3/uL (134-434); RDW 13.6 % (11.9-15.9); WHITE BLOOD COUNT 3.3 K/mm3 (4.0-10.0)
[2022-03-08 12:02] LABS: CALCIUM 8.2 mg/dL (8.5-10.1)
[2022-03-08 12:03] LABS: ALBUMIN 3.1 g/dl (3.4-5.0); BLOOD UREA NITROGEN 19.2 mg/dL (7-18)
[2022-03-08 12:06] LABS: CREATININE 1.5 mg/dL (0.55-1.3)
[2022-03-08 12:07] LABS: BILIRUBIN,TOTAL 0.7 mg/dL (0.2-1); TOT PROT 6.4 g/dl (6.4-8.2)
== END 2022-03-08 15:01 | disposition home or self-care (01) ==
LOC: JER 15:13 → JERBED 15:57 → J4W 20:04
PROVIDERS: ADMIT Family Medicine; ATTEND Family Medicine
PROC: 3E023GC Introduction of Other Therapeutic Substance into Muscle, Percutaneous Approach (ICD-10-PCS; principal; 2022-03-07)
DX: U07.1 COVID-19 (principal); R00.0 Tachycardia, unspecified; N20.0 Calculus of kidney; I10 Essential (primary) hypertension; R63.30 Feeding difficulties, unspecified; K63.5 Polyp of colon; R42 Dizziness and giddiness; R05.9 Cough, unspecified; E66.9 Obesity, unspecified; Z68.36 Body mass index [BMI] 36.0-36.9, adult; Z72.0 Tobacco use; R19.7 Diarrhea, unspecified
CPT/HCPCS: 36415; 80053; 83036; 84484; 85025; 85379; 86140; 96372; 99285-25; C9803-CS; G0378; U0003; U0005

== ENCOUNTER 2022-06-24 23:04 | Observation (INO) | payer OTHER ==
[2022-06-24 23:22] VITALS: TEMP 98.1; BMI 35.5
[2022-06-24] MEDS ORDERED: NITROGLYCERIN SUBLINGUAL 1/200 0.3 MG BTL SL ONE (23:48)
[2022-06-24] MEDS ORDERED: ACETAMINOPHEN 1000 MG/100 ML BAG IVPB ONE (23:48)
[2022-06-25] MEDS ORDERED: NITROGLYCERIN SUBLINGUAL 1/150 0.4 MG TAB ONE (00:12)
[2022-06-25] MEDS ORDERED: ACETAMINOPHEN INJECTION 100 ML IVPB ONE (00:35)
[2022-06-25 00:41] LABS: BASO % 0.7 % (0-2.0); EOS % 0.7 % (0-4.5); HEMATOCRIT 38.9 % (35.4-49); HEMOGLOBIN 13.9 GM/dL (11.7-16.9); LYMPH % 11.9 % (8-40); MCH 32.2 pg (25.7-33.7); MCHC 35.7 g/dl (32.0-35.9); MEAN CELL VOLUME 90.1 fl (80-96); MEAN PLT VOLUME 6.5 fl (7.5-11.1); MONO % 5.7 % (3.8-10.2); PLATELET COUNT 250 10^3/uL (134-434); RBC 4.32 M/mm3 (4.00-5.60); RDW 13.5 % (11.9-15.9)
[2022-06-25 00:50] LABS: INR 1.14 (0.83-1.09); PROTHROMBIN TIME (PATIENT) 13.1 SEC (9.7-13.0)
[2022-06-25 01:02] LABS: CALCIUM 8.8 mg/dL (8.5-10.1)
[2022-06-25 01:03] LABS: ALBUMIN 3.7 g/dl (3.4-5.0); BLOOD UREA NITROGEN 18.6 mg/dL (7-18)
[2022-06-25 01:06] LABS: CREATININE 1.4 mg/dL (0.55-1.3)
[2022-06-25 01:07] LABS: TOT PROT 7.5 g/dl (6.4-8.2)
[2022-06-25 01:08] LABS: BILIRUBIN,TOTAL 0.6 mg/dL (0.2-1)
[2022-06-25] MEDS ORDERED: DOCUSATE SODIUM 100 MG CAPSULE (FP) PO PRN (05:11)
[2022-06-25] MEDS ORDERED: ACETAMINOPHEN 1000 MG/100 ML BAG IVPB PRN (05:16)
[2022-06-25] MEDS ORDERED: FAMOTIDINE 20 MG/50 ML IVPB 20 MG/50 ML MG IVPB ONE (05:18)
[2022-06-25] MEDS ORDERED: MAG HYDROX/AL HYDROX/SIMETH 30 ML UNIT-DOSE CUP PO PRN (05:20)
[2022-06-25] MEDS ORDERED: MELATONIN 5 MG TABLETS PO PRN (05:26)
[2022-06-25 06:25] VITALS: BP 107/55; PULSE 54; RESP 20
[2022-06-25 07:43] LABS: BASO % 0.6 % (0-2.0); EOS % 0.4 % (0-4.5); HEMATOCRIT 36.9 % (35.4-49); LYMPH % 15.6 % (8-40); MCH 31.6 pg (25.7-33.7); MCHC 35.3 g/dl (32.0-35.9); MEAN CELL VOLUME 89.5 fl (80-96); MEAN PLT VOLUME 7.2 fl (7.5-11.1); MONO % 5.7 % (3.8-10.2); NEUT % 77.7 % (42.8-82.8); PLATELET COUNT 245 10^3/uL (134-434); RBC 4.12 M/mm3 (4.00-5.60); RDW 13.3 % (11.9-15.9); WHITE BLOOD COUNT 11.2 K/mm3 (4.0-10.0)
[2022-06-25] MEDS ORDERED: ENOXAPARIN NA (PORCINE) 40 MG/0.4 ML DISP.SYRIN SQ SCH (10:00)
[2022-06-25] MEDS ORDERED: metoPROLOL SUCCINATE 25 MG TAB.SR.24H (FP) PO SCH ×2 (10:00→11:02)
[2022-06-25] MEDS ORDERED: LISINOPRIL 10 MG TABLET PO SCH (10:00)
[2022-06-25] MEDS ORDERED: ENOXAPARIN NA (PORCINE) 40 MG/0.4 ML DISP.SYRIN SQ ONE (10:26)
[2022-06-25] MEDS ORDERED: ATORVASTATIN CA 10 MG TABLET (FP) PO SCH (22:00)
== END 2022-06-25 11:46 | disposition home or self-care (01) ==
LOC: JER 23:04 → JERBED 06-25 03:05
PROVIDERS: ADMIT Hospitalist; ATTEND Family Medicine
PROC: 3E033NZ Introduction of Analgesics, Hypnotics, Sedatives into Peripheral Vein, Percutaneous Approach (ICD-10-PCS; principal; 2022-06-25)
PROC: 3E023GC Introduction of Other Therapeutic Substance into Muscle, Percutaneous Approach (ICD-10-PCS; 2022-06-25)
PROC: 3E033GC Introduction of Other Therapeutic Substance into Peripheral Vein, Percutaneous Approach (ICD-10-PCS; 2022-06-25)
DX: R07.9 Chest pain, unspecified (principal); I12.9 Hypertensive chronic kidney disease with stage 1 through stage 4 chronic kidney disease, or unspecified chronic kidney disease; N18.9 Chronic kidney disease, unspecified; M47.819 Spondylosis without myelopathy or radiculopathy, site unspecified; E78.5 Hyperlipidemia, unspecified; N20.0 Calculus of kidney; E11.22 Type 2 diabetes mellitus with diabetic chronic kidney disease; M19.90 Unspecified osteoarthritis, unspecified site; K64.9 Unspecified hemorrhoids
CPT/HCPCS: 0241U-QW; 36415; 71045-TC-FY; 80053; 80061; 83036; 83690; 84484; 85025; 85610; 85730; 86850; 86900; 86901; 93005; 93010; 96365; 96372; 96375; 99285-25; G0378

== ENCOUNTER 2025-03-14 10:18 | Inpatient (IN) | payer OTHER ==
[2025-03-14] MEDS: LACTATED RINGERS SOLUTION 1000 ML INFUS.BAG IV ONE (11:33)
[2025-03-14 11:50] LABS: ABSOLUTE IMMATURE GRANULOCYTES 0.05 x10^3/uL (0.0-0.031); BASOPHILS # 0.07 x10^3/uL (0.01-0.08); EOSINOPHIL % 0.5 % (0.8-7.0); EOSINOPHILS # 0.05 x10^3/uL (0.04-0.54); HEMOGLOBIN 13.1 g/dL (13.7-17.5); MCHC 33.6 g/dl (32.3-36.5); MEAN CELL VOLUME 92.6 fl (79.0-92.2); MEAN PLT VOLUME 8.6 fl (9.4-12.4); MONOCYTE # 0.84 x10^3/uL (0.30-0.82); MONOCYTE % 7.6 % (5.3-12.2); PLATELET COUNT 222 x10^3/uL (163-337); RDW 12.9 % (12.2-16.6)
[2025-03-14 11:57] LABS: INR 1.13 (0.83-1.09); PROTHROMBIN TIME (PATIENT) 12.4 SEC (9.7-13.0)
[2025-03-14 12:00] LABS: ACTIVATED PTT 29.1 SECONDS (25.2-36.5)
[2025-03-14 12:10] LABS: POTASSIUM 4.1 mmol/L (3.5-5.1)
[2025-03-14 12:12] LABS: CALCIUM 9.2 mg/dL (8.5-10.1)
[2025-03-14 12:13] LABS: ALBUMIN 3.5 g/dl (3.4-5.0); BLOOD UREA NITROGEN 32.1 mg/dL (7-18)
[2025-03-14 12:16] LABS: CREATININE 1.7 mg/dL (0.55-1.3)
[2025-03-14 12:17] LABS: BILIRUBIN,TOTAL 0.6 mg/dL (0.2-1); TOT PROT 6.8 g/dl (6.4-8.2)
[2025-03-14 12:21] LABS: LACTIC ACID 3.4 mmol/L (0.4-2.0)
[2025-03-14] MEDS ORDERED: LORazepam 2 MG/ML SDV VIAL ONE (13:05)
[2025-03-14 13:07] LABS: HCV DIAGNOSTIC IN-HOUSE W/RFLX NON-REACTIVE (NONREACTIVE); HIV INTERPRETATION NEGATIVE (NEGATIVE)
[2025-03-14] MEDS: LACTATED RINGERS SOLUTION 1,000 ML/1,000 ML INFUS.BAG IV SCH (16:20)
[2025-03-14] MEDS: BISACODYL 5 MG TABLET.DR (FP) PO ONE (17:32)
[2025-03-14] MEDS: PEG 3350/NA SULF BICARB CL/KCL 4000 ML SOLN.RECON PO ONE (17:49)
[2025-03-14 19:41] LABS: LACTIC ACID 3.3 mmol/L (0.4-2.0)
[2025-03-14 20:00] VITALS: BMI 34.8
[2025-03-14] MEDS: LACTATED RINGERS SOLUTION 1,000 ML/1,000 ML INFUS.BAG IV STA (21:00)
[2025-03-14] MEDS: ATORVASTATIN CA 10 MG TABLET (FP) PO SCH (21:38)
[2025-03-15 08:02] LABS: ABSOLUTE IMMATURE GRANULOCYTES 0.04 x10^3/uL (0.0-0.031); BASOPHILS # 0.06 x10^3/uL (0.01-0.08); EOSINOPHIL % 1.3 % (0.8-7.0); EOSINOPHILS # 0.09 x10^3/uL (0.04-0.54); HEMATOCRIT 31.3 % (40.1-51.0); HEMOGLOBIN 10.5 g/dL (13.7-17.5); MCHC 33.5 g/dl (32.3-36.5); MEAN CELL VOLUME 92.9 fl (79.0-92.2); MEAN PLT VOLUME 8.7 fl (9.4-12.4); MONOCYTE # 0.46 x10^3/uL (0.30-0.82); MONOCYTE % 6.5 % (5.3-12.2); PLATELET COUNT 181 x10^3/uL (163-337); RDW 13.1 % (12.2-16.6)
[2025-03-15 08:23] LABS: INR 1.22 (0.83-1.09); PROTHROMBIN TIME (PATIENT) 13.3 SEC (9.7-13.0)
[2025-03-15 08:30] LABS: POTASSIUM 3.8 mmol/L (3.5-5.1)
[2025-03-15 08:33] LABS: ALBUMIN 3.2 g/dl (3.4-5.0); BLOOD UREA NITROGEN 23.3 mg/dL (7-18); CALCIUM 8.6 mg/dL (8.5-10.1)
[2025-03-15 08:36] LABS: PHOSPHOROUS 1.8 mg/dL (2.5-4.9)
[2025-03-15 08:37] LABS: CREATININE 1.3 mg/dL (0.55-1.3)
[2025-03-15 08:38] LABS: BILIRUBIN,TOTAL 0.5 mg/dL (0.2-1); TOT PROT 5.8 g/dl (6.4-8.2)
[2025-03-15] MEDS ORDERED: LISINOPRIL 5 MG TABLET PO SCH (10:00)
[2025-03-15] MEDS: LISINOPRIL 10 MG TABLET PO SCH (13:15)
[2025-03-15 13:37] LABS: URINE APPEARANCE CLEAR; URINE BILIRUBIN NEGATIVE (NEGATIVE); URINE COLOR YELLOW; URINE GLUCOSE (UA) NEGATIVE (NEGATIVE); URINE KETONE NEGATIVE (NEGATIVE); URINE LEUK ESTERASE NEGATIVE (NEGATIVE); URINE NITRITE NEGATIVE (NEGATIVE); URINE PROTEIN NEGATIVE (NEGATIVE); URINE UROBILINOGEN 0.2 mg/dL (0.2-1.0)
[2025-03-15 18:23] VITALS: RESP 18
[2025-03-15] MEDS: metoPROLOL SUCCINATE 25 MG TAB.SR.24H (FP) PO ONE (19:41)
[2025-03-16 07:56] LABS: ABSOLUTE IMMATURE GRANULOCYTES 0.04 x10^3/uL (0.0-0.031); BASOPHILS # 0.04 x10^3/uL (0.01-0.08); EOSINOPHIL % 1.1 % (0.8-7.0); EOSINOPHILS # 0.08 x10^3/uL (0.04-0.54); HEMATOCRIT 31.8 % (40.1-51.0); HEMOGLOBIN 10.3 g/dL (13.7-17.5); MCHC 32.4 g/dl (32.3-36.5); MEAN CELL VOLUME 95.5 fl (79.0-92.2); MEAN PLT VOLUME 8.8 fl (9.4-12.4); MONOCYTE # 0.54 x10^3/uL (0.30-0.82); MONOCYTE % 7.5 % (5.3-12.2); PLATELET COUNT 181 x10^3/uL (163-337); RDW 13.2 % (12.2-16.6)
[2025-03-16 08:11] LABS: POTASSIUM 4.1 mmol/L (3.5-5.1)
[2025-03-16 08:13] LABS: CALCIUM 8.6 mg/dL (8.5-10.1)
[2025-03-16 08:14] LABS: ALBUMIN 3.2 g/dl (3.4-5.0); BLOOD UREA NITROGEN 23.8 mg/dL (7-18); MAGNESIUM 2.1 mg/dL (1.8-2.4)
[2025-03-16 08:17] LABS: CREATININE 1.4 mg/dL (0.55-1.3)
[2025-03-16 08:19] LABS: BILIRUBIN,TOTAL 0.5 mg/dL (0.2-1)
[2025-03-16] MEDS: metoPROLOL SUCCINATE 25 MG TAB.SR.24H (FP) PO SCH (09:44)
[2025-03-16 13:42] VITALS: BP 117/54; PULSE 82; TEMP 98.4
== END 2025-03-16 14:05 | disposition home or self-care (01) | DRG 375 ==
LOC: JER 10:18 → JERBED 14:25 → UNDOADMOB 14:25 → J7W 16:53 → JERBED 16:53 → J7W 20:04 → OBSVTOIN 03-15 11:21
PROVIDERS: ADMIT Internal Medicine; ATTEND Internal Medicine
PROC: 0DBL8ZX Excision of Transverse Colon, Via Natural or Artificial Opening Endoscopic, Diagnostic (ICD-10-PCS; 2025-03-15)
PROC: 0DBM8ZX Excision of Descending Colon, Via Natural or Artificial Opening Endoscopic, Diagnostic (ICD-10-PCS; 2025-03-15)
PROC: 0DBK8ZX Excision of Ascending Colon, Via Natural or Artificial Opening Endoscopic, Diagnostic (ICD-10-PCS; principal; 2025-03-15 11:00)
DX: C18.9 Malignant neoplasm of colon, unspecified (principal); K92.1 Melena; E78.5 Hyperlipidemia, unspecified; F17.210 Nicotine dependence, cigarettes, uncomplicated; R73.03 Prediabetes; K57.30 Diverticulosis of large intestine without perforation or abscess without bleeding; I12.9 Hypertensive chronic kidney disease with stage 1 through stage 4 chronic kidney disease, or unspecified chronic kidney disease; N18.9 Chronic kidney disease, unspecified; K64.8 Other hemorrhoids; D64.9 Anemia, unspecified; D12.3 Benign neoplasm of transverse colon; D12.4 Benign neoplasm of descending colon
CPT/HCPCS: 36415; 74174-TC; 80053; 81003; 82272; 82378; 82607; 82746; 82962; 83605; 83735; 84100; 85025; 85610; 85730; 86803; 86850; 86900; 86901; 87389; 88305-TC; 88341-TC; 88342-TC; 93005; 93010; 99285-25; G0378

== ENCOUNTER 2025-04-23 06:42 | Inpatient (IN) | payer OTHER ==
[2025-04-17 15:52] VITALS: BMI 35.2
[2025-04-23] MEDS ORDERED: BUPIVACAINE HCL/PF 0.25% (2.5MG/ML) 10 ML VIAL ONE ×2 (07:11→08:53)
[2025-04-23] MEDS ORDERED: cefOXitin SODIUM 2 GM VIAL (RESTRICTED TO ID) IVPB ONE ×2 (07:11)
[2025-04-23] MEDS ORDERED: HEPARIN NA (PORCINE) 5,000 UNITS/ML 1ML VIAL ONE (07:11)
[2025-04-23] MEDS ORDERED: ROCURONIUM BROMIDE 50 MG/5 ML SYRINGE ONE ×2 (07:21→09:56)
[2025-04-23] MEDS ORDERED: MIDAZOLAM HCL 2 MG/2 ML SINGLE DOSE VIAL ONE (07:21)
[2025-04-23] MEDS ORDERED: SUCCINYLCHOLINE CHLORIDE 200 MG/10 ML SYRINGE ONE (07:21)
[2025-04-23] MEDS ORDERED: PROPOFOL 20 ML ONE (07:21)
[2025-04-23] MEDS ORDERED: DEXAMETHASONE SOD PHOSPHATE 4 MG/1 ML VIAL ONE (07:22)
[2025-04-23] MEDS ORDERED: LIDOCAINE HCL/PF 2% SDV 5ML VIAL ONE (07:22)
[2025-04-23] MEDS ORDERED: ONDANSETRON 4 MG/2 ML VIAL ONE (07:22)
[2025-04-23] MEDS: cefOXitin SODIUM 2 GM VIAL (RESTRICTED TO ID) IVPB ONE ×2 (08:20)
[2025-04-23] MEDS: BUPIVACAINE HCL/PF 0.25% (2.5MG/ML) 10 ML VIAL IJ ONE ×2 (08:50)
[2025-04-23] MEDS ORDERED: INDOCYANINE GREEN 25 MG/10 ML VIAL IVPUSH ONE (11:02)
[2025-04-23] MEDS ORDERED: ACETAMINOPHEN INJECTION 100 ML ONE (13:40)
[2025-04-23] MEDS ORDERED: HYDROmorphone HCl 2 MG/ML VIAL ONE (13:44)
[2025-04-23] MEDS ORDERED: SUGAMMADEX SODIUM 200 MG/2 ML VIAL ONE (13:46)
[2025-04-23] MEDS ORDERED: oxyCODONE HCL 5 MG TABLET PO PRN (13:56)
[2025-04-23] MEDS ORDERED: ONDANSETRON 4 MG/2 ML VIAL IVPUSH PRN (14:45)
[2025-04-23] MEDS: ACETAMINOPHEN 1000 MG/100 ML BAG IVPB SCH (15:04)
[2025-04-23] MEDS: LACTATED RINGERS SOLUTION 1,000 ML IV SCH (16:08)
[2025-04-23] MEDS: CEFOXITIN SODIUM 2 GM in DEXTROSE 5%-WATER - 100 ML IVPB SCH (18:30)
[2025-04-23] MEDS: ATORVASTATIN CA 10 MG TABLET (FP) PO SCH (21:07)
[2025-04-24 08:19] LABS: HEMATOCRIT 33.7 % (40.1-51.0); HEMOGLOBIN 10.9 g/dL (13.7-17.5); MCHC 32.3 g/dl (32.3-36.5); MEAN CELL VOLUME 94.4 fl (79.0-92.2); MEAN PLT VOLUME 8.7 fl (9.4-12.4); PLATELET COUNT 174 x10^3/uL (163-337); RDW 13.1 % (12.2-16.6)
[2025-04-24 08:38] LABS: POTASSIUM 3.8 mmol/L (3.5-5.1)
[2025-04-24 08:50] LABS: BLOOD UREA NITROGEN 20.3 mg/dL (7-18)
[2025-04-24 08:53] LABS: CALCIUM 8.7 mg/dL (8.5-10.1); CREATININE 1.5 mg/dL (0.55-1.3); MAGNESIUM 2.1 mg/dL (1.8-2.4); PHOSPHOROUS 3.1 mg/dL (2.5-4.9)
[2025-04-24] MEDS: ASPIRIN COATED 81 MG TABLET.EC PO SCH (09:31)
[2025-04-24] MEDS: FERROUS SO4 325 MG TABLET (FP) PO SCH (09:31)
[2025-04-24] MEDS: ENOXAPARIN NA (PORCINE) 40 MG/0.4 ML DISP.SYRIN SQ SCH (09:31)
[2025-04-24] MEDS: LISINOPRIL 5 MG TABLET PO SCH (09:31)
[2025-04-24] MEDS: metoPROLOL SUCCINATE 25 MG TAB.SR.24H (FP) PO SCH (09:31)
[2025-04-24] MEDS: oxyCODONE HCL 5 MG TABLET PO PRN (16:35)
[2025-04-24] MEDS: ACETAMINOPHEN 500 MG TABLET (FP) PO SCH (19:59)
[2025-04-25 07:58] LABS: HEMATOCRIT 32.3 % (40.1-51.0); HEMOGLOBIN 10.2 g/dL (13.7-17.5); MCHC 31.6 g/dl (32.3-36.5); MEAN CELL VOLUME 96.7 fl (79.0-92.2); MEAN PLT VOLUME 8.7 fl (9.4-12.4); PLATELET COUNT 170 x10^3/uL (163-337); RDW 13.2 % (12.2-16.6)
[2025-04-25 09:06] LABS: BLOOD UREA NITROGEN 16.6 mg/dL (7-18); CALCIUM 8.3 mg/dL (8.5-10.1)
[2025-04-25 09:07] LABS: MAGNESIUM 2.1 mg/dL (1.8-2.4)
[2025-04-25 09:09] LABS: CREATININE 1.3 mg/dL (0.55-1.3)
[2025-04-25 09:10] LABS: PHOSPHOROUS 1.8 mg/dL (2.5-4.9)
[2025-04-25] MEDS: NAPH,MB-DB/K PH,MBDB POWDER PACKET PO SCH (22:12)
[2025-04-26 08:12] LABS: HEMATOCRIT 30.2 % (40.1-51.0); HEMOGLOBIN 9.6 g/dL (13.7-17.5); MCHC 31.8 g/dl (32.3-36.5); MEAN CELL VOLUME 95.9 fl (79.0-92.2); MEAN PLT VOLUME 8.6 fl (9.4-12.4); PLATELET COUNT 169 x10^3/uL (163-337)
[2025-04-26 08:21] LABS: POTASSIUM 3.8 mmol/L (3.5-5.1)
[2025-04-26 08:40] LABS: CALCIUM 8.6 mg/dL (8.5-10.1)
[2025-04-26 08:41] LABS: BLOOD UREA NITROGEN 14.4 mg/dL (7-18); MAGNESIUM 2.1 mg/dL (1.8-2.4)
[2025-04-26 08:44] LABS: CREATININE 1.1 mg/dL (0.55-1.3)
[2025-04-26 09:34] VITALS: RESP 18
[2025-04-26] MEDS: IRON SUCROSE INJECTION 200 MG in SODIUM CHLORIDE 100 ML IVPB ONE (14:44)
[2025-04-27 09:08] LABS: HEMATOCRIT 33.9 % (40.1-51.0); HEMOGLOBIN 10.8 g/dL (13.7-17.5); MCHC 31.9 g/dl (32.3-36.5); MEAN CELL VOLUME 95.8 fl (79.0-92.2); MEAN PLT VOLUME 8.8 fl (9.4-12.4); PLATELET COUNT 197 x10^3/uL (163-337); RDW 12.7 % (12.2-16.6)
[2025-04-27 09:31] LABS: CALCIUM 8.4 mg/dL (8.5-10.1)
[2025-04-27 09:32] LABS: BLOOD UREA NITROGEN 16.5 mg/dL (7-18); MAGNESIUM 1.8 mg/dL (1.8-2.4)
[2025-04-27 09:35] LABS: CREATININE 1.1 mg/dL (0.55-1.3)
[2025-04-27 09:36] LABS: PHOSPHOROUS 2.6 mg/dL (2.5-4.9)
[2025-04-27 10:30] VITALS: BP 135/62; PULSE 62; TEMP 98.4
[2025-04-27] MEDS: MAGNESIUM OXIDE 400 MG TABLET (FP) PO ONE (11:34)
== END 2025-04-27 13:18 | disposition home health service (06) | DRG 331 ==
LOC: J2C 06:42 → J8W 16:53
PROVIDERS: ADMIT Family Medicine; ATTEND Nurse Practitioner Acute Care
PROC: 8E0W4CZ Robotic Assisted Procedure of Trunk Region, Percutaneous Endoscopic Approach (ICD-10-PCS; 2025-04-23)
PROC: 0DTF4ZZ Resection of Right Large Intestine, Percutaneous Endoscopic Approach (ICD-10-PCS; principal; 2025-04-23 08:00)
DX: C18.9 Malignant neoplasm of colon, unspecified (principal); I10 Essential (primary) hypertension
CPT/HCPCS: 36415; 80048; 83540; 83735; 84100; 85027; 86140; 86850; 86900; 86901; 88307-TC; 88329; 94760; 97116-GP; 97161-GP; J1756